=== PATIENT | female | born 2000 | race American Indian/Alaskan Native ===

== ENCOUNTER 2023-07-30 10:10 | Observation (INO) | payer MEDICAID ==
[2023-07-30] MEDS ORDERED: PREN-96 PO (11:27)
== END 2023-07-30 12:00 | disposition home or self-care (01) ==
LOC: LDRP 10:10
PROVIDERS: ADMIT Obstetrics & Gynecology; ATTEND Obstetrics & Gynecology
DX: O26.892 Other specified pregnancy related conditions, second trimester (principal); R10.9 Unspecified abdominal pain; R51.9 Headache, unspecified; R42 Dizziness and giddiness; Z3A.24 24 weeks gestation of pregnancy; Z91.040 Latex allergy status
CPT/HCPCS: 59025; 81002; 94760; G0378

== ENCOUNTER 2023-11-05 11:00 | Inpatient (IN) | payer MEDICAID ==
[~2023-11-05] VITALS: Ht 160 cm; Wt 81.6 kg
[~2023-11-05 11:00] MED LIST: PREN-96 PO
[2023-11-05] MEDS ORDERED: LIDOCAINE 2%HCL (LOCAL ANESTH.) INJ 20ML MDV IJ PRN (12:00)
[2023-11-05] MEDS ORDERED: BUTORPHANOL TARTRATE 2 MG/1 ML VIAL IV PRN ×2 (12:00)
[2023-11-05] MEDS ORDERED: PROMETHAZINE HCL 25 MG/ML 1ML IV PRN (12:00)
[2023-11-05] MEDS ORDERED: TERBUTALINE SULFATE 1 MG/ML 1ML VIAL SC PRN (12:00)
[2023-11-05] MEDS: NALOXONE HCL 0.4 MG/ML VIAL IV ONE (12:15)
[2023-11-05] MEDS: ePHEDrine SULFATE 50 MG/ML AMP IV ONE (12:15)
[2023-11-05 12:55] LABS: Basophils # (auto) 0 10 ^3/uL (0-0.2); Eosinophils # (auto) 0.1 10 ^3/uL (0-0.8); Hematocrit 30.5 % (36.0-46.0); Lymphocytes # (auto) 1.1 10 ^3/uL (0.4-5.4); Monocytes # (auto) 0.4 10 ^3/uL (0-1.3); Neutrophils # (auto) 3.5 10 ^3/uL (1.6-8.6); Nucleated Red Blood Cells % 0.1 %; Red Blood Cells 3.71 10^6/uL (4.0-5.20)
[2023-11-05 12:57] LABS: Basophils % (auto) 0.7 % (0.0-2.0); Hemoglobin 9.8 g/dL (12.2-16.2); Lymphocytes % (auto) 21.8 % (10.0-50.0); Mean Corpuscular Hemoglobin 26.5 pg (28.0-32.0); Mean Corpuscular Hgb Conc. 32.2 g/dL (32.0-36.0); Mean Corpuscular Volume 82.2 fL (80.0-100.0); Monocytes % (auto) 7.1 % (0.0-12.0); Neutrophils % (auto) 68.4 % (37.0-80.0); Red Cell Distribution Width 13.7 % (11.8-14.3); White Blood Cell 5.1 10^3/uL (4.4-10.8)
[2023-11-05 13:13] LABS: INR 0.89 (0.9-1.15); Partial Thromboplastin Time 26.5 SEC (24.5-34.5); Prothrombin Time 9.4 sec (9.3-11.8)
[2023-11-05 13:14] LABS: Alanine Aminotransferase 47 U/L (7-40); Albumin 3.9 g/dL (3.2-4.8); Alkaline Phosphatase 217 U/L (46-116); Anion Gap 7 (5-15); Aspartate Aminotransferase 36 U/L (13-40); BUN/Creatinine Ratio 9.3 (10.0-20.0); Blood Urea Nitrogen 7 mg/dL (9-23); Calcium 9.3 mg/dL (8.5-10.1); Carbon Dioxide 22 mmol/L (20-30); Chloride 107 mmol/L (98-107); Glucose 80 mg/dL (74-106); Sodium 136 mmol/L (136-145)
[2023-11-05 13:15] LABS: Bilirubin, Total 0.6 mg/dL (0.2-1.0); Total Protein 6.7 g/dL (5.7-8.2)
[2023-11-05 14:27] LABS: Urine Bacteria NONE SEEN /hpf (None Seen); Urine Blood Negative /uL (Negative); Urine Clarity Clear (Clear); Urine Color Colorless (Yellow); Urine Protein, UAD Negative (Negative); Urine Specific Gravity 1.006 (1.001-1.035); Urine Urobilinogen Normal (Negative); Urine WBC <1 /hpf (0 - 5); Urine pH 6.5 (5.0-8.0)
[2023-11-05 14:28] LABS: Amphetamine Screen, Urine Neg (NEGATIVE); Barbiturate Scree,Urine Neg (NEGATIVE); Benzodiazephine Screen, Urine Neg (NEGATIVE); Cannabinoid Screen, Urine Neg (NEGATIVE); Cocaine Screen, Urine Neg (NEGATIVE); Opiate Scree,Urine Neg (NEGATIVE); Phencyclidine Screen, Urine Neg (NEGATIVE)
[2023-11-05] MEDS: LACT. RINGERS/OXYTOCIN 20UNITS 1,000 ML IV SCH (14:52)
[2023-11-05] MEDS: LACTATED RINGER'S 1,000 ML IV SCH (14:53)
[2023-11-05] MEDS: ROPIVACAINE HCL 200 ML ONE (14:55)
[2023-11-05] MEDS: LACT. RINGERS/OXYTOCIN 20UNITS 500 ML IV ONE ×2 (17:20→17:21)
[2023-11-05] MEDS: METHYLERGONOVINE MALEATE 0.2 MG/ML AMP IM ONE (17:21)
[2023-11-05] MEDS: WITCH HAZEL-GLYCERIN PAD TOP PRN (17:23)
[2023-11-05] MEDS: DERMOPLAST 60ML BOTTLE TOP PRN (17:24)
[2023-11-05] MEDS: PHISODERM TOP SOLN 240ML BTL TOP PRN (17:24)
[2023-11-05] MEDS ORDERED: ACETAMINOPHEN 325 MG TAB PO PRN (17:30)
[2023-11-05] MEDS ORDERED: ONDANSETRON ODT 4 MG TAB PO PRN (17:30)
[2023-11-05 23:00] VITALS: BP 146/97; PULSE 75; RESP 18; TEMP 97.6; O2SAT 100
[2023-11-05] MEDS: IBUPROFEN 600 MG TAB PO PRN (23:00)
[2023-11-06 03:00] VITALS: BP 119/79; PULSE 76; RESP 17; TEMP 97.6; O2SAT 96
[2023-11-06 07:03] VITALS: BP 108/65; PULSE 62; RESP 15; TEMP 98.2; O2SAT 96
[2023-11-06 08:06] LABS: RPR Non Reactive (Non Reactive)
[2023-11-06 10:34] VITALS: BP 97/64; PULSE 79; RESP 18; TEMP 98.3; O2SAT 95
[2023-11-06 12:06] LABS: Rubella Antibodies, IgG 2.55 index (Immune >0.99)
[2023-11-06 15:15] VITALS: BP 112/76; PULSE 76; RESP 18; TEMP 98; O2SAT 96
[2023-11-06 17:25] VITALS: BP 110/68; PULSE 72; RESP 18; TEMP 98.6; O2SAT 97
[2023-11-09 19:06] LABS: Treponema pallidum Ab (FTA-Ab) Non Reactive (Non Reactive)
== END 2023-11-06 17:25 | disposition home or self-care (01) | DRG 560 ==
LOC: UNDOADMOB 11:00 → LDRP 11:00 → INTOOBSV 11:44 → OBSVTOIN 11:44 → LDRP 12:09
PROVIDERS: ADMIT Obstetrics & Gynecology; ATTEND Obstetrics & Gynecology
PROC: 10E0XZZ Delivery of Products of Conception, External Approach (ICD-10-PCS; principal; 2023-11-05)
PROC: 3E0R3BZ Introduction of Anesthetic Agent into Spinal Canal, Percutaneous Approach (ICD-10-PCS; 2023-11-05)
PROC: 00HU33Z Insertion of Infusion Device into Spinal Canal, Percutaneous Approach (ICD-10-PCS; 2023-11-05)
DX: O60.14X0 Preterm labor third trimester with preterm delivery third trimester, not applicable or unspecified (principal); Z37.0 Single live birth; Z3A.38 38 weeks gestation of pregnancy
CPT/HCPCS: 36415; 59025; 59409; 62282; 80053; 80307; 81001; 81002; 85025; 85610; 85730; 86592; 86703; 86762; 86850; 86900; 86901; 87340; 94760; 96360; 96361; 96365; 96366; 96372; G0378; J2590